=== PATIENT | male | born 1965 | race Caucasian/White ===

== ENCOUNTER 2016-04-08 00:30 | Emergency (ER) | payer OTHER ==
[2016-04-11] MEDS ORDERED: BUSPIRONE HCL10 MG PO (10:10)
[2016-04-11] MEDS ORDERED: OMEPRAZOLE40 MG PO (10:10)
[2016-04-11] MEDS ORDERED: AMITRIPTYLINE100 MG PO (10:10)
[2016-04-11] MEDS ORDERED: CARDURA4 MG PO (10:10)
[2016-04-11] MEDS ORDERED: ACETAMINOPHEN325 MG PO (10:11)
[2016-04-11] MEDS ORDERED: REQUIP0.5 MG PO (10:11)
[2016-04-11] MEDS ORDERED: LYRICA75 MG PO (10:11)
== END 2016-04-08 03:21 | disposition critical access hospital (66) ==
LOC: ER 00:30
DX: T48.1X1A Poisoning by skeletal muscle relaxants [neuromuscular blocking agents], accidental (unintentional), initial encounter (principal); D72.829 Elevated white blood cell count, unspecified; R74.0 Nonspecific elevation of levels of transaminase and lactic acid dehydrogenase [LDH]; F17.210 Nicotine dependence, cigarettes, uncomplicated; Z87.442 Personal history of urinary calculi
CPT/HCPCS: 51701; 96360

== ENCOUNTER 2016-04-08 00:30 | Observation (INO) | payer OTHER ==
--- NOTE | 2016-04-09 15:29 | NUR ---
1100-MD HERE TO SEE AND ASSESS PT AT THIS TIME. UPDATED ON PT CONDITION. N/O'S NOTED 1230-PT DOWN FOR CT ABDOMEN AND PELVIS
[2016-04-11] MEDS ORDERED: BUSPIRONE HCL10 MG PO (10:10)
[2016-04-11] MEDS ORDERED: OMEPRAZOLE40 MG PO (10:10)
[2016-04-11] MEDS ORDERED: AMITRIPTYLINE100 MG PO (10:10)
[2016-04-11] MEDS ORDERED: CARDURA4 MG PO (10:10)
[2016-04-11] MEDS ORDERED: REQUIP0.5 MG PO (10:11)
[2016-04-11] MEDS ORDERED: LYRICA75 MG PO (10:11)
[2016-04-11] MEDS ORDERED: ACETAMINOPHEN325 MG PO (10:11)
== END 2016-04-10 16:30 | disposition home or self-care (01) ==
LOC: ER 00:30 → ICU 03:13
PROVIDERS: ADMIT Internal Medicine
DX: T48.1X1A Poisoning by skeletal muscle relaxants [neuromuscular blocking agents], accidental (unintentional), initial encounter (principal); K21.9 Gastro-esophageal reflux disease without esophagitis; R41.82 Altered mental status, unspecified; D72.829 Elevated white blood cell count, unspecified; F32.9 Major depressive disorder, single episode, unspecified; N44.00 Torsion of testis, unspecified; Z87.442 Personal history of urinary calculi; Z82.49 Family history of ischemic heart disease and other diseases of the circulatory system; Z82.5 Family history of asthma and other chronic lower respiratory diseases; Z79.899 Other long term (current) drug therapy; Z98.1 Arthrodesis status; Z90.79 Acquired absence of other genital organ(s)
CPT/HCPCS: 36415; 80307; 87502; 96361; 96372; 96374; 96375; 96376; G0378; G0480; J1650; J1885; Q9963; Q9967

== ENCOUNTER → 2016-07-28 | Day surgery (SDC) | payer OTHER ==
[~2016-07-28] MED LIST: ACETAMINOPHEN325 MG PO; AMITRIPTYLINE100 MG PO; BUSPIRONE HCL10 MG PO; CARDURA4 MG PO; LYRICA75 MG PO; OMEPRAZOLE40 MG PO; REQUIP0.5 MG PO
== END | disposition home or self-care (01) ==
LOC: SDC 09:47
DX: N20.0 Calculus of kidney (principal); I10 Essential (primary) hypertension; K21.9 Gastro-esophageal reflux disease without esophagitis; E66.9 Obesity, unspecified; M19.90 Unspecified osteoarthritis, unspecified site; Z79.1 Long term (current) use of non-steroidal anti-inflammatories (NSAID); Z79.891 Long term (current) use of opiate analgesic; Z79.899 Other long term (current) drug therapy
CPT/HCPCS: C1758; J1885; J2704; Q9967